=== PATIENT | female | born 1980 | race Caucasian/White ===

== ENCOUNTER 2021-01-13 11:53 | Inpatient (IN) | payer MEDICARE, MEDICAID ==
[~2021-01-13] VITALS: Ht 165.1 cm; Wt 211.6 kg
[2021-01-13] MEDS ORDERED: ONDANSETRON ODT 4 MG PO PRN (15:00)
[2021-01-13] MEDS ORDERED: BISACODYL 10 MG SUPP PR PRN (15:00)
[2021-01-13] MEDS ORDERED: DOCUSATE 100 MG CAPSULE PO PRN (15:00)
[2021-01-13] MEDS ORDERED: POLYETHYLENE GLYCOL 17 GM PACKET PO PRN (15:00)
[2021-01-13] MEDS ORDERED: PLEASE ENTER ALLERGIES MC SCH ×2 (15:30)
[2021-01-13] MEDS ORDERED: PLEASE ENTER HEIGHT AND WEIGHT MC SCH ×2 (15:30)
[2021-01-13] MEDS ORDERED: ALBUTEROL HFA 90 MCG/SPRAY INH PRN (16:30)
[2021-01-13 18:06] VITALS: BP 133/71
[2021-01-13] MEDS: NYSTATIN TOPICAL POWDER 15GM TP SCH (20:25)
[2021-01-13] MEDS ORDERED: MELATONIN 5 MG TABLET PO PRN (21:00)
[2021-01-13 22:14] LABS: MICROSCOPIC INDICATED
[2021-01-14 06:43] LABS: MEAN CORPUSCULAR HEMOGLOBIN 17.6 pg (27.0-34.8); MEAN PLATELET VOLUME 8.3 fL (7.4-10.4); PLATELET COUNT 282 x10^3/uL (130-400); RED BLOOD COUNT 4.21 x10^6/uL (3.82-5.3); RED CELL DISTRIBUTION WIDTH 21.8 % (9.6-15.2)
[2021-01-14 06:57] LABS: ANION GAP 3 mmol/L (5-15); CALCIUM 8.5 mg/dL (8.5-10.1); CHLORIDE 108 mmol/L (98-107)
[2021-01-14 07:03] LABS: ALANINE AMINOTRANSFERASE 13 U/L (12-78); ALBUMIN 3.3 g/dL (3.4-5.0); BILIRUBIN,TOTAL 0.9 mg/dL (0.2-1.0); CHOL/HDL RATIO 3.7; CHOLESTEROL, TOTAL 89 mg/dL (140-239); CREATININE 0.62 mg/dL (0.55-1.02); HDL CHOL % 27 % (28-40); HDL CHOLESTEROL (DIRECT) 24 mg/dL (40-60); LDL CHOLESTEROL,CALCULATED 44 mg/dL (54-169); LDL/HDL RATIO 1.8 (0.5-3.0); TOTAL PROTEIN 6.9 g/dL (6.4-8.2); TRIGLYCERIDES 103 mg/dL (50-200); VLDL CHOLESTEROL 21 mg/dL (0-25)
[2021-01-14 07:09] LABS: ALKALINE PHOSPHATASE 79 U/L (45-117); FREE T4 (FREE THYROXINE) 1.09 ng/dL (0.76-1.46)
[2021-01-14 07:10] LABS: MD YES; MEAN CORPUSCULAR HGB CONC 28.4 g/dL (32.4-35.8)
[2021-01-14 07:13] LABS: ANISOCYTOSIS 2+; EOS#(MANUAL) 0.07 x10^3/uL (0.0-0.4); EOS% (MANUAL) 1 % (1-7); LYMPH#(MANUAL) 3.04 x10^3/uL (1-3.4); LYMPHS% (MANUAL) 44 % (22-44); MICROCYTOSIS 2+; MONOS#(MANUAL) 0.41 x10^3/uL (0.3-2.7); MONOS% (MANUAL) 6 % (2-9); POLYCHROMASIA 1+; SEG#(MANUAL) 3.38 x10^3/uL (1.8-6.8); SEGS% (MANUAL) 49 % (42-75)
[2021-01-14 07:14] LABS: <PLATELET ESTIMATE> ADEQUATE; HYPOCHROMIA 2+; LARGE PLATELETS 1+; OVALOCYTES 1+; TEAR DROPS 1+
[2021-01-14 07:32] VITALS: BP 145/72
[2021-01-14] MEDS ORDERED: BUPROPION 75 MG TABLET PO SCH (08:00)
[2021-01-14] MEDS: NYSTATIN TOPICAL POWDER 15GM TP SCH (09:00)
[2021-01-14 11:54] VITALS: BP 134/71
[2021-01-14] MEDS ORDERED: POTA20TA14 PO (18:49)
[2021-01-14] MEDS ORDERED: FURO20TA3 PO (18:49)
[2021-01-14] MEDS ORDERED: FURO40TA6 PO (18:49)
[2021-01-14] MEDS ORDERED: ALBU2.5V11 NEB (18:49)
[2021-01-15] MEDS ORDERED: BUPR75TA6 PO (09:17)
[2021-01-15] MEDS ORDERED: APIX5TAB PO (09:17)
[2021-01-15] MEDS ORDERED: NYST15PO2 TP (09:17)
[2021-01-15] MEDS ORDERED: HYDR-826 PO (09:17)
[2021-01-15] MEDS ORDERED: MELA5TAB14 PO (09:17)
[2021-01-15] MEDS ORDERED: ALBU8.5H8 INH (18:09)
[2021-01-15] MEDS ORDERED: POTA20PA31 PO (18:09)
[2021-01-15] MEDS ORDERED: FURO40TA6 PO (18:09)
== END 2021-01-14 11:50 | DRG 885 ==
LOC: 3E 14:53
PROVIDERS: ADMIT Psychiatry & Neurology Psychosomatic Medicine; ATTEND Psychiatry & Neurology Psychosomatic Medicine
PROC: 0T9B70Z Drainage of Bladder with Drainage Device, Via Natural or Artificial Opening (ICD-10-PCS; principal; 2021-01-13)
DX: F31.9 Bipolar disorder, unspecified (principal); R45.851 Suicidal ideations; Z68.45 Body mass index [BMI] 70 or greater, adult; D68.69 Other thrombophilia; I50.32 Chronic diastolic (congestive) heart failure; F41.1 Generalized anxiety disorder; E66.01 Morbid (severe) obesity due to excess calories; G47.33 Obstructive sleep apnea (adult) (pediatric); J45.909 Unspecified asthma, uncomplicated; G43.909 Migraine, unspecified, not intractable, without status migrainosus; F25.9 Schizoaffective disorder, unspecified; B37.9 Candidiasis, unspecified; I11.0 Hypertensive heart disease with heart failure; G40.909 Epilepsy, unspecified, not intractable, without status epilepticus; G25.81 Restless legs syndrome; Z86.14 Personal history of Methicillin resistant Staphylococcus aureus infection; Z91.14 Patient's other noncompliance with medication regimen; Z91.5 Personal history of self-harm; Z86.718 Personal history of other venous thrombosis and embolism; Z88.6 Allergy status to analgesic agent
CPT/HCPCS: 36415; 71045; 80053; 80061; 81001; 84439; 84443; 84703; 85025; 87086; 93005

== ENCOUNTER 2021-01-14 11:30 | Observation (INO) | payer MEDICARE, MEDICAID ==
[~2021-01-14] VITALS: Ht 165.1 cm; Wt 210.6 kg
[2021-01-14] MEDS ORDERED: ENOXAPARIN 40 MG/0.4 ML SQ SCH (13:00)
[2021-01-14] MEDS ORDERED: PLEASE ENTER ALLERGIES MC SCH (13:30)
[2021-01-14] MEDS ORDERED: MELATONIN 5 MG TABLET PO PRN (13:30)
[2021-01-14] MEDS ORDERED: PLEASE ENTER HEIGHT AND WEIGHT MC SCH (13:30)
[2021-01-14] MEDS ORDERED: ENOXAPARIN 40 MG/0.4 ML ONE (14:31)
[2021-01-14 14:59] VITALS: BP 125/67
[2021-01-14] MEDS: BUPROPION 75 MG TABLET PO SCH ×2 (16:00→21:12)
[2021-01-14] MEDS ORDERED: ALBU2.5V11 NEB (18:49)
[2021-01-14] MEDS ORDERED: FURO40TA6 PO (18:49)
[2021-01-14] MEDS ORDERED: POTA20TA14 PO (18:49)
[2021-01-14] MEDS ORDERED: FURO20TA3 PO (18:49)
[2021-01-14 20:26] VITALS: BP 145/71
[2021-01-14] MEDS: APIXABAN 5 MG TABLET PO SCH (21:12)
[2021-01-14] MEDS: NYSTATIN TOPICAL POWDER 15GM TP SCH (22:52)
[2021-01-15 01:30] VITALS: BP 148/74
[2021-01-15] MEDS ORDERED: MELA5TAB14 PO (09:17)
[2021-01-15] MEDS ORDERED: HYDR-826 PO (09:17)
[2021-01-15] MEDS ORDERED: BUPR75TA6 PO (09:17)
[2021-01-15] MEDS ORDERED: NYST15PO2 TP (09:17)
[2021-01-15] MEDS ORDERED: APIX5TAB PO (09:17)
[2021-01-15 09:30] VITALS: BP 110/68
[2021-01-15] MEDS: BUPROPION 75 MG TABLET PO SCH ×2 (09:34→16:03)
[2021-01-15] MEDS: APIXABAN 5 MG TABLET PO SCH (09:34)
[2021-01-15] MEDS: NYSTATIN TOPICAL POWDER 15GM TP SCH (09:35)
[2021-01-15 13:03] VITALS: BP 128/84
[2021-01-15] MEDS ORDERED: ALBU8.5H8 INH (18:09)
[2021-01-15] MEDS ORDERED: POTA20PA31 PO (18:09)
[2021-01-15] MEDS ORDERED: FURO40TA6 PO (18:09)
== END 2021-01-16 00:07 ==
LOC: 5SO 11:57 → INTOOBSV 11:57
PROVIDERS: ADMIT Internal Medicine; ATTEND Internal Medicine
DX: J96.11 Chronic respiratory failure with hypoxia (principal); I27.20 Pulmonary hypertension, unspecified; R00.1 Bradycardia, unspecified; R45.851 Suicidal ideations; B37.2 Candidiasis of skin and nail; D50.9 Iron deficiency anemia, unspecified; D68.69 Other thrombophilia; J45.909 Unspecified asthma, uncomplicated; I11.0 Hypertensive heart disease with heart failure; I50.32 Chronic diastolic (congestive) heart failure; F32.9 Major depressive disorder, single episode, unspecified; G47.33 Obstructive sleep apnea (adult) (pediatric); G43.909 Migraine, unspecified, not intractable, without status migrainosus; G40.909 Epilepsy, unspecified, not intractable, without status epilepticus; G25.81 Restless legs syndrome; E66.01 Morbid (severe) obesity due to excess calories; F17.200 Nicotine dependence, unspecified, uncomplicated; F12.90 Cannabis use, unspecified, uncomplicated; Z79.01 Long term (current) use of anticoagulants; Z79.899 Other long term (current) drug therapy; Z86.14 Personal history of Methicillin resistant Staphylococcus aureus infection; Z86.718 Personal history of other venous thrombosis and embolism; Z91.19 Patient's noncompliance with other medical treatment and regimen; Z98.84 Bariatric surgery status; Z91.5 Personal history of self-harm
CPT/HCPCS: 93005; 93970; 96372; C8929; G0378; J1650; Q0177; Q9957

== ENCOUNTER 2021-04-26 07:57 | Outpatient (CLI) | payer MEDICARE, MEDICAID ==
[~2021-04-26 07:57] MED LIST: ALBU2.5V11 NEB; ALBU8.5H8 INH; APIX5TAB PO; BUPR-173 PO; BUPR75TA6 PO; FURO20TA3 PO; FURO40TA6 PO; HYDR-826 PO; LIDO700A20 TD; MELA5TAB14 PO; MUPI22OI2 TP; NYST15CR TP; NYST15PO2 TP; POTA20PA31 PO; POTA20TA14 PO; TOPI25TA32 PO; TRAM50TA2 PO
== END 2021-04-26 23:59 | disposition home or self-care (01) ==
LOC: RAD 07:57
PROVIDERS: ATTEND Surgery
DX: Z01.818 Encounter for other preprocedural examination (principal); E66.01 Morbid (severe) obesity due to excess calories; Z68.44 Body mass index [BMI] 60.0-69.9, adult
CPT/HCPCS: 71046; 74240